=== PATIENT | female | born 1955 | race Caucasian/White ===

== ENCOUNTER 2016-10-06 10:01 | Day surgery (SDC) | payer BC ==
[~2016-10-06 10:01] MED LIST: CEFAZOLIN SODIUM 2 GRAM PREMIX 100 ML IV ONE; IV START KIT ONE; LACTATED RINGERS 1,000 ML ONE
[2016-10-06] MEDS ORDERED: LIDOCAINE 1% 2 ML VIAL ID PRN (10:13)
[2016-10-06] MEDS ORDERED: LACTATED RINGERS 1,000 ML IV SCH ×3 (10:13→13:06)
[2016-10-06] MEDS ORDERED: CEFAZOLIN SODIUM 2 GRAM DUPLEX 2 G in Premix (D5W) 50 ml 1 EACH IV PRN (10:13)
[2016-10-06] MEDS ORDERED: PROPOFOL 40 ML IV ONE (11:27)
[2016-10-06] MEDS ORDERED: METOCLOPRAMIDE HCL 5 MG/ML 2ML VIAL ONE (11:27)
[2016-10-06] MEDS ORDERED: DEXAMETHASONE SOD PHOS 4 MG/1 ML VIAL ONE ×2 (11:27→12:10)
[2016-10-06] MEDS ORDERED: MIDAZOLAM HCL 1 MG/ML 2ML VIAL ONE (11:27)
[2016-10-06] MEDS ORDERED: LIDOCAINE 2% (MULTI DOSE) 10 ML VIAL ONE (11:27)
[2016-10-06] MEDS ORDERED: FENTANYL 100 MCG/2 ML VIAL ONE (11:27)
[2016-10-06] MEDS ORDERED: PROMETHAZINE HCL 25 MG/ML VIAL IM PRN (11:52)
[2016-10-06] MEDS ORDERED: ONDANSETRON 4 MG/2ML 2 ML VIAL IV PRN ×2 (11:52→13:06)
[2016-10-06] MEDS ORDERED: FENTANYL 100 MCG/2 ML VIAL IV PRN (11:52)
[2016-10-06] MEDS ORDERED: MEPERIDINE 25 MG/ML SYRINGE IV PRN (11:52)
[2016-10-06] MEDS ORDERED: NALOXONE HCL 0.4 MG/ML VIAL IV PRN (11:52)
[2016-10-06] MEDS ORDERED: ATROPINE SULFATE 0.4 MG/1 ML VIAL IV PRN (11:52)
[2016-10-06] MEDS ORDERED: HYDROMORPHONE HCL 1 MG/ML SYRINGE IV PRN (11:52)
[2016-10-06] MEDS ORDERED: ONDANSETRON 4 MG/2ML 2 ML VIAL ONE (12:10)
[2016-10-06] MEDS ORDERED: HYDROMORPHONE HCL 2 MG/ML SYRINGE ONE (12:18)
[2016-10-06] MEDS ORDERED: KETOROLAC TROMETHAMINE 30 MG/ML 1 ML VIAL ONE (12:31)
[2016-10-06] MEDS ORDERED: PROPOFOL 20 ML IV ONE (12:32)
[2016-10-06] MEDS ORDERED: KETOROLAC TROMETHAMINE 30 MG/ML 1 ML VIAL IV PRN (13:06)
[2016-10-06] MEDS ORDERED: OXYCODONE HCL 5 MG TABLET PO PRN (13:06)
--- NOTE | 2016-10-06 19:17 | OP ---
POONAM HURST [id number] DATE OF SERVICE: 10/06/2016 SURGEON: Dr. Toño Aragon PREOPERATIVE DIAGNOSIS: Endometrial polyp. POSTOPERATIVE DIAGNOSIS: Endometrial polyp. OPERATION: HYSTEROSCOPY AND RESECTION OF ENDOMETRIAL POLYP. ANESTHESIA: General. FINDINGS: There was a very large endometrial polyp attached to the posterior wall of the uterus. TECHNICAL PROCEDURE: After induction of satisfactory general anesthesia, the patient was placed in the supine lithotomy position, prepped and draped in the usual fashion. A weighted speculum was placed in the vagina and the cervix was grasped with a single-tooth tenaculum. The endocervix was dilated using progressively larger Mckoy dilators to a 27-Arabic. The hysteroscope was introduced and the above findings noted. Using the resectoscope, the polyp was resected in its entirety. Hemostasis was assured. The instruments were removed and the procedure terminated. The patient tolerated the procedure well and left the operating room awake and in good condition. There were no complications. Instrument, needle and sponge counts were correct. Estimated blood loss was minimal.
--- NOTE | 2016-10-10 14:29 | SURGPATH ---
[facility] [address] [place] [id number] Patient Name: POONAM HURST I. MR#: [id number] : 1955 Gender: F Specimen #: [id number] Collected: 10/06/2016 Received: 10/09/2016 Reported: 10/10/2016 Submitting Phys: VANESSA GALVAN Copy To Phys: [facility] Clinical History / Pre-Operative Diagnosis: Endometrial polyp Specimen Source / Surgical Procedure Performed: ENDOMETRIAL POLYP Interpretation: ENDOMETRIUM, POLYP, CURETTAGE: - MULTIPLE FRAGMENTS OF BENIGN ENDOMETRIAL POLYP - SCANT BACKGROUND INACTIVE TO ATROPHIC ENDOMETRIUM Electronically Signed Out Kenia Hodges M.D. Gross Description: The specimen is received in a formalin filled container labeled with the patient's name and "endometrial polyp". An aggregate of rubbery pink-escalante tissue fragments is 3.7 x 3.5 x 0.8 cm. Totally embedded in cassettes A-C. Batool Mendes Microscopic Description: Multiple fragments show endometrial polyp with fibrotic stroma, thickwalled blood vessels, and slightly crowded and dilated glands. The stroma does not show cytologic atypia or increased mitoses. Smooth muscle is not seen within the stroma. No atypical hyperplasia is seen. There is only very scant residual non-polypoid endometrium present which shows atrophic to inactive endometrium. 1: [id number] N84.0
== END 2016-10-06 14:36 | disposition home or self-care (01) ==
LOC: SDC 10:01
PROVIDERS: ATTEND Obstetrics & Gynecology
DX: N84.0 Polyp of corpus uteri (principal)
CPT/HCPCS: 58558; J1170; J3010; J1100 ×2; J2765; J1885; J2250; J2405; J7120; J2001; J0690